=== PATIENT | female | born 1955 | race Caucasian/White ===

== ENCOUNTER 2017-04-13 10:58 | Outpatient (CLI) | payer BC ==
--- NOTE | 2017-04-13 16:42 | MRI ---
MRI CERVICAL SPINE NONCONTRAST; Date: 04/13/17 HISTORY: 62-year-old female with cervical radiculopathy and myelopathy. COMPARISON: 11/10/08. FINDINGS: There is no Chiari I malformation. The cervical spinal cord is normal in size and signal. The bone m arrow signal is normal. Vertebral body heights are maintained. Alignment is normal. The spinal canal is diffusely small in caliber on a congenital basis due to developmentally short pedicles. This is ex acerbated at several levels by central disc-osteophyte complexes encroaching upon the anterior aspect of the spinal canal. There are mild and moderate degenerative facet changes bilaterally at multiple levels, left worse than right. There is mild disc space narrowing at C4-5 and mild to moderate disc s pace narrowing at C5-6. The cervical spine cord is normal in size and signal. There is no syrinx. C1-2: No high grade central stenosis. C2-3: Mild to moderate central stenosis almost entirely on a developmental basis. No right-sided neural for aminal stenosis. Mild to moderate left neural foraminal stenosis. Moderate left degenerative facet hy pertrophy. Mild right degenerative facet changes. C3-4: Focal small central disc-osteophyte complex indents the ventral surface of the spinal cord. This is m inimally larger than it was in 2009. Overall, there is a moderate to severe degree of central spinal canal stenosis. There is ample CSF space to the right and to the left of the spinal cord, but not ant erior or posterior to the spinal cord. Small bilateral uncinate process osteophytes. Mild bilateral n eural foraminal stenosis, left greater than right. Essentially normal right facet joint. Moderate lef t facet degenerative hypertrophy. C4-5: Broad based, shallow disc-osteophyte complex mildly indents the ventral surface of the spinal cord, c ausing moderate to severe central spinal canal stenosis, greater than in 2009. Small bilateral uncina te process osteophytes. Bilateral mild to moderate neural foraminal stenosis. Mild to moderate right degenerative facet changes. Moderate left degenerative facet changes. C5-6: Central and bilateral paracentral disc-osteophyte complex abuts the ventral surface of the spinal cor d. There is no longer ample CSF space posterior to the spinal cord, and little anterior to the spinal cord. There is ample CSF space to the right and left of the spinal cord. Overall degree of central s regan canal stenosis is moderate to severe. Small to moderate bilateral uncinate process osteophytes. Moderate bilateral neural foraminal stenosis, left greater than right. The neural foraminal stenosis has progressed since the previous study. C6-7: Asymmetrical broad based disc-osteophyte complex abuts the ventral surface of the spinal cord. Mildly thickened ligamentum flavum abuts the dorsal surface of the spinal cord. Overall, moderate to severe central spinal canal stenosis. Bilateral moderate sized uncinate process osteophytes cause bilateral moderate to severe neural foraminal stenosis, progressed since the previous study. No high grade deg enerative facet changes. C7-T1: No central stenosis. Mild to moderate right degenerative facet changes. Moderate to severe left degen erative facet changes. No central or neural foraminal stenosis. IMPRESSION: 1. Cervical spondylosis exacerbating a developmentally small caliber spinal canal. 2. Multilevel moderate to severe central spinal canal stenosis. 3. Higher grade neural foraminal stenosis at lower levels. 4. Mild to moderate interval worsening since 2008. POS: ASUNCION
== END 2017-04-13 10:59 | disposition home or self-care (01) ==
LOC: MRI 10:58
PROVIDERS: ATTEND Anesthesiology
DX: M47.12 Other spondylosis with myelopathy, cervical region (principal); M47.22 Other spondylosis with radiculopathy, cervical region; M48.02 Spinal stenosis, cervical region; M99.51 Intervertebral disc stenosis of neural canal of cervical region
CPT/HCPCS: 72141

== ENCOUNTER 2017-06-03 08:18 | Day surgery (SDC) | payer BC ==
[2017-06-02 11:44] VITALS: BMI 22.8
--- NOTE | 2017-06-03 02:09 | HP ---
HISTORY OF PRESENT ILLNESS: Ms. Hinton is a 62-year-old woman who was referred to us by Dr. Shanks for concern of her cervical myelopathy. She has had a MRI scan of her cervical spine from [facility] that reveals congenitally narrow cervical spinal canal, but also multilevel disk osteophyte complexes, most significant of which is at C5-C6 and C6-C7, both at the base of spinal cord, but the re is no underlying T2 signal change that we can discern. Her major complaints are that of headaches as well as neck and interscapular pains with bilateral radiating symptoms in the bilateral arms that was consistent with C6 and C7 radiculopathies. She also feels numbness and hand intrinsic weakness, dropping items and having difficulty with fine motor function. This very well could result from the stenosis that she has in her spine. PAST MEDICAL HISTORY: Significant for sleep apnea, arthritis. CURRENT MEDICATIONS: Trazodone, Cymbalta, Neurontin, Celebrex, hydrocodone, lansoprazole, cyclobenza ashleigh. PAST SURGICAL HISTORY: Total knee replacement, hysterectomy, oophorectomy, rectocele repair and afor ementioned gastric sleeve. ALLERGIES: SULFA DRUGS. PHYSICAL EXAMINATION: GENERAL: The patient is alert and oriented x3. NEUROLOGIC: Gait is normal, no ataxia. EXTREMITIES: On motor exam, she has mild weakness in the bilateral hands. The rest of the exam was normal. There is of both dorsal and volar aspects of her hands. Reflexes are weak present reece aterally at the biceps. ASSESSMENT: Cervical radiculopathy. PLAN: Dr. Medina met with the patient, reviewed imaging and ultimately advocated for 2 level ACDF fro m C5-C7. He explained to the patient the risks, benefits, and alternatives of the procedure. The uzair zhong expressed understanding and would like to move forward with surgery as discussed. I do believe the patient is mentally competent and capable of making medical decisions for herself and we will mo ve forward with surgery as planned. César Torres PA-C, dictating for Rickey Medina M.D.
[2017-06-03] MEDS ORDERED: Thrombin 5000 UNITS/5 ML VIAL ONE (10:03)
[2017-06-03] MEDS ORDERED: CEFAZOLIN/Water 2 GM/20 ML SYRINGE ONE ×2 (10:16→15:14)
[2017-06-03] MEDS ORDERED: Fentanyl 100 MCG/2 ML VIAL ONE ×3 (10:20→12:36)
--- NOTE | 2017-06-03 12:02 | OP ---
DATE OF PROCEDURE: 06/03/2017 SURGEON: Dr. Rickey Medina PANEL LAMINATOR: Navin Torres PA-C. INDICATION: Pain. PREOPERATIVE DIAGNOSIS: Cervical stenosis with cervical radiculopathy. PROCEDURE: Anterior cervical discectomy and fusion C5-C7. ANESTHESIA: General. TECHNIQUE: The patient was brought into the operating room and placed under general anesthesia. She was placed on the table in supine position. A transverse incision was planned over the lateral aspe ct of the neck on the right. After prepping and draping and after an appropriate operative pause, th e incision was created. The underlying platysma muscle was identified and incised. A blunt tissue p klaus anterior to the sternocleidomastoid muscle was used to gain access to the prevertebral space. A fter identifying the appropriate levels with C-arm fluoroscopy, an annulotomy was performed in the C6 -7 disk space where all disk material as well as anterior and posterior osteophytes were removed. Af ter complete decompression, a 7 mm lordotic PEEK cage packed with allograft and autograft material wa s placed within the interbody space. We then redirected our attention to the level above at C5-6 whe re again an annulotomy was performed. All disk material as well as anterior and posterior osteophyte s were removed. After complete decompression, a 7 mm lordotic PEEK cage packed with allograft and au tograft material was placed in the interbody space. An anterior cervical plate was then fashioned to the front of the spine and secured with a total of 6 screws. Midline and lateral structures were in spected and found to be free from significant trauma. The wound was irrigated. Hemostasis was maint ained throughout. The wound was then closed in anatomic layers and a pressure dressing was applied. There were no known procedural complications.
[2017-06-03] MEDS ORDERED: HYDROmorphone 0.5 MG/0.5 ML SYRINGE ONE ×4 (12:50→13:32)
[2017-06-03] MEDS ORDERED: SUMAtriptan Succinate 50 MG TAB PO PRN (13:25)
[2017-06-03] MEDS ORDERED: Ondansetron HCl/PF 4 MG/2 ML Vial ONE (15:23)
[2017-06-03] MEDS ORDERED: Dexamethasone 20 MG/5 ML VIAL ONE (15:23)
[2017-06-03] MEDS ORDERED: Lidocaine 1% PF 5 ML VIAL ONE (15:23)
[2017-06-03] MEDS ORDERED: ePHEDrine/0.9% NaCl/PF SYRINGE 50 mg/10 ml ONE (15:23)
[2017-06-03] MEDS ORDERED: PROPOFOL 200 MG/20 ML VIAL ONE (15:23)
== END 2017-06-03 15:45 | disposition home or self-care (01) ==
LOC: SDC 08:18
PROVIDERS: ATTEND Anesthesiology
PROC: 0RG20A0 Fusion of 2 or more Cervical Vertebral Joints with Interbody Fusion Device, Anterior Approach, Anterior Column, Open Approach (ICD-10-PCS; principal; 2017-06-03)
DX: M48.02 Spinal stenosis, cervical region (principal); M54.12 Radiculopathy, cervical region; Z88.2 Allergy status to sulfonamides; Z88.8 Allergy status to other drugs, medicaments and biological substances; M19.90 Unspecified osteoarthritis, unspecified site; G47.30 Sleep apnea, unspecified; Z96.659 Presence of unspecified artificial knee joint; Z90.710 Acquired absence of both cervix and uterus; Z98.84 Bariatric surgery status; Z98.890 Other specified postprocedural states
CPT/HCPCS: 76001; 96374; C1713; C1776; J1100; J1170; J2001; J2405; J2704; J3010

== ENCOUNTER 2017-07-16 10:38 | Outpatient (CLI) | payer BC ==
--- NOTE | 2017-07-16 12:39 | RAD ---
3 VIEW CERVICAL SPINE: Date: 07/16/17 HISTORY: Cervical radiculopathy, prior cervical spine surgery. FINDINGS: Anterior diskectomy and fusion hardware is present at C5-6/C6-7. On the lateral examination, there is a linear metallic density projecting anterior to the T1 vertebra l body. This was not seen on the lateral examination and suggests something external to the patient. There is multilevel bilateral facet and uncovertebral osteophyte formation throughout the cervical sp ine from C4-5 through C7-T1. Open-mouth odontoid view demonstrates a normal appearing dens and C1-2 a rticulation. No prevertebral soft tissue swelling. No anterolisthesis or retrolisthesis. IMPRESSION: Postoperative and degenerative change within the cervical spine as above. POS: ASUNCION
== END 2017-07-16 10:39 | disposition home or self-care (01) ==
LOC: TBSIIMAG 10:38
PROVIDERS: ATTEND Neurological Surgery
DX: M47.22 Other spondylosis with radiculopathy, cervical region (principal); Z98.890 Other specified postprocedural states
CPT/HCPCS: 72040

== ENCOUNTER 2017-09-23 11:26 | Outpatient (CLI) | payer BC ==
--- NOTE | 2017-09-23 13:23 | RAD ---
CERVICAL SPINE 3 VIEWS: INDICATION: Neck pain. Followup surgery. COMPARISON: 07/16/17. FINDINGS: Postop changes are again noted with anterior plate and screws transfixing C5, C6, and C7 with interbo dy implants. These changes appear stable from 07/16/17. Posterior alignment is maintained. Disk spa daniela are otherwise preserved. There are mild degenerative changes which are again noted. IMPRESSION: Stable findings when compared to 07/16/17. POS: ASUNCION
== END 2017-09-23 11:27 | disposition home or self-care (01) ==
LOC: TBSIIMAG 11:26
PROVIDERS: ATTEND Neurological Surgery
DX: M54.12 Radiculopathy, cervical region (principal)
CPT/HCPCS: 72040

== ENCOUNTER 2017-10-02 07:48 | Outpatient (CLI) | payer BC ==
--- NOTE | 2017-10-02 09:33 | MRI ---
NONCONTRAST MRI CERVICAL SPINE: DATE: 10/12/17. HISTORY: Cervical radiculopathy. Getting headaches and bilateral hand pain. Numbness and swelling in the butcher ds. History of prior cervical spine surgery in May of 2016. COMPARISON: 04/13/17. FINDINGS: There have been interval postsurgical changes compared to the prior study with metallic susceptibilit y artifact related to anterior cervical fusion of the C5-6 and C6-7 levels. Cervicomedullary junction and limited visualized base of the brain demonstrate a normal MRI appearanc e. Aside from metallic susceptibility artifact at the C5 through C7 levels, there is otherwise normal si gnal intensity demonstrated throughout the bone marrow. C2-3 level: There is no disk bulge or disk herniation. Right neural foramen and central canal are p atent. There is mild left-sided neural foraminal narrowing related to facet hypertrophic changes on the left. C3-4 level: There is a disk-osteophyte complex with central disk protrusion also present on a prior study. Again noted is narrowing of the central spinal canal with slight flattening of the anterior a spect of the spinal cord, and normal signal intensity is present in the spinal cord at this level. U ncinate process hypertrophy is seen primarily on the right. There is mild bilateral neural foraminal narrowing overall similar to the prior exam. C4-5 level: A broad-based disk-osteophyte complex is again seen. This narrows the ventral subarachn oid space with slight flattening of the anterior aspect of the spinal cord similar to the prior study . There is generalized narrowing of the central spinal canal with mild to moderate narrowing of the central spinal canal. Mild bilateral neural foraminal narrowing is again seen. there are facet hype rtrophic changes present at this level. C5-6 level: Previously seen broad-based disk-osteophyte complex has improved related to recent posts urgical changes. Central spinal canal is patent. The right neural foramen is patent. There is mild left-sided neural foraminal narrowing related to mild posterior osteophyte formation on the left. C6-7 level: Postsurgical changes are present related to anterior cervical fusion as described above. The previously noted disk bulge at this level could not be seen. Mild residual posterior osteophyt e formation is seen and results in only slight effacement of the ventral aspect of the thecal sac. T here is no mass effect on the spinal cord. There is mild narrowing of each neural foramen. C7-T1 level: There is no disk bulge or disk herniation. Central spinal canal and neural foramina ar e patent. T1-2 level: There is no disk bulge or disk herniation. The central spinal canal and neural foramen are patent. Paravertebral soft tissues demonstrate a normal MRI appearance. IMPRESSION: 1. Interval postsurgical changes related to anterior cervical fusion of C5 through C7 levels. Previ ously noted disk bulges and central spinal canal narrowing at these levels has improved and previousl y noted mass effect on the spinal cord is no longer seen. 2. Stable prominent degenerative changes at C3-4 and C4-5 levels. 3. There is generalized narrowing of the central spinal canal which is on a congenital basis. POS: ASUNCION
== END 2017-10-02 07:49 | disposition home or self-care (01) ==
LOC: TBSIIMAG 07:48
PROVIDERS: ATTEND Neurological Surgery
DX: M50.10 Cervical disc disorder with radiculopathy, unspecified cervical region (principal); M47.26 Other spondylosis with radiculopathy, lumbar region; M48.02 Spinal stenosis, cervical region; Z98.890 Other specified postprocedural states; Z98.1 Arthrodesis status
CPT/HCPCS: 72141

== ENCOUNTER 2020-02-13 15:34 | Outpatient (CLI) | payer BC, OTHER ==
[2020-02-14 11:36] LABS: SARS-CoV-2 MS2 Positive; SARS-CoV-2 N Gene Negative; SARS-CoV-2 S Gene Negative; SARS-CoV-2 by NAA Not Detected (NotDetected); SARS-CoV-2 orf1ab Negative
== END 2020-02-13 15:35 | disposition home or self-care (01) ==
LOC: LABBT 15:34
PROVIDERS: ATTEND Physician Assistant Medical
DX: Z20.828 Contact with and (suspected) exposure to other viral communicable diseases (principal)
CPT/HCPCS: 87635; U0003

== ENCOUNTER 2020-03-07 08:42 | Outpatient (CLI) | payer BC ==
[2020-03-08 18:39] LABS: SARS-CoV-2 MS2 Positive; SARS-CoV-2 N Gene Negative; SARS-CoV-2 S Gene Negative; SARS-CoV-2 by NAA Not Detected (NotDetected); SARS-CoV-2 orf1ab Negative
== END 2020-03-07 08:43 | disposition home or self-care (01) ==
LOC: LABBT 08:42
DX: Z01.812 Encounter for preprocedural laboratory examination (principal); Z20.828 Contact with and (suspected) exposure to other viral communicable diseases
CPT/HCPCS: 87635; U0003

== ENCOUNTER 2020-03-16 08:13 | Outpatient (CLI) | payer BC ==
[2020-03-16 17:55] LABS: SARS-CoV-2 MS2 Positive; SARS-CoV-2 N Gene Negative; SARS-CoV-2 S Gene Negative; SARS-CoV-2 by NAA Not Detected (NotDetected); SARS-CoV-2 orf1ab Negative
== END 2020-03-16 08:14 | disposition home or self-care (01) ==
LOC: LABBT 08:13
PROVIDERS: ATTEND Physician Assistant Medical
DX: Z01.812 Encounter for preprocedural laboratory examination (principal); Z20.828 Contact with and (suspected) exposure to other viral communicable diseases
CPT/HCPCS: 87635; U0003

== ENCOUNTER 2020-03-21 07:48 | Outpatient (CLI) | payer BC ==
--- NOTE | 2020-03-21 09:11 | RAD ---
EXAM: XR UGI Air Contrast PROVIDED CLINICAL HISTORY: Gastroesophageal reflux disease. Patient with history of prior gastric sleeve procedure. Patient has had persistent nausea and vomiting. Patient is post dilatation of the area of narrowing in August 2019. However patient continues to have nausea and vomiting. COMPARISON: None FINDINGS: Clean [employer] image demonstrates radiopaque suture material and postoperative clips in the epigastric region and left upper quadrant. Bowel gas pattern is nonspecific with small to moderate amount retained fecal material in the ascending colon. Phleboliths overlie the pelvis. There is calcification overlyi ng right iliac bone likely related to overlying injection granulomata. Degenerative changes are seen in the spine. Upper GI was performed with thin and thick liquid barium. There is decreased primary esophageal peris talsis. No tertiary contractions were appreciated during the exam. There is no evidence of a hiatal hernia. No gastroesophageal reflux was demonstrated during the exam. Postoperative changes related to gastric sleeve procedure are noted. The stomach does readily empty into the small bowel with the majority of contrast in the small bowel at the end of the examination. The duodenum and proximal smal l bowel demonstrate a normal appearance. IMPRESSION: 1. Prominent decrease in primary esophageal peristalsis. 2. Postoperative changes related to gastric sleeve procedure. Contrast in the stomach readily empties into the small bowel.
== END 2020-03-21 07:49 | disposition home or self-care (01) ==
LOC: RAD 07:48
PROVIDERS: ATTEND Physician Assistant Medical
DX: K21.9 Gastro-esophageal reflux disease without esophagitis (principal); R11.2 Nausea with vomiting, unspecified; R19.2 Visible peristalsis; Z98.890 Other specified postprocedural states
CPT/HCPCS: 74246

== ENCOUNTER 2020-08-28 15:17 | Outpatient (CLI) | payer BC ==
[2020-08-28 16:55] LABS: #Basophils 0.1 10x3/uL (0.0-0.2); #Eosinphils 0.1 10x3/uL (0.0-0.5); #Monocytes 0.5 10x3/uL (0.0-1.1); #Neutrophils 2.4 10x3/uL (1.5-8.4); %Eosinophils 2.3 % (0.0-6.0); %Lymphocytes 39.8 % (18.0-47.0); %Monocytes 9.3 % (0.0-10.0); %Neutrophils 47.2 % (40.0-75.0); Hemoglobin 12.7 g/dL (12.0-15.5); Mean Corpuscular HGB CONC 31.5 g/dL (32.0-36.0); Mean Corpuscular Hemoglobin 28.7 pg (27.0-33.0); Mean Corpuscular Volume 91.2 fl (81.6-98.3); Mean Platelet Volume 9.9 fl (7.4-10.4); Platelet Count 325 10x3/uL (150-450); RBC Distribution Width 13.4 % (11.5-14.5); Red Blood Cell (RBC) Count 4.42 10x6/uL (3.90-5.03); White Blood Cell (WBC) Count 5.2 10x3/uL (3.5-10.5)
[2020-08-28 17:02] LABS: ALT (SGPT) 13 U/L (8-55); AST (SGOT) 15 U/L (5-34); Albumin 4.3 g/dL (3.4-4.8); Alkaline Phosphatase 82 U/L (40-110); Anion Gap 14 mmol/L (10-20); BUN (Urea Nitrogen) 12 mg/dL (9.8-20.1); Bilirubin, Direct 0.2 mg/dL (0.1-0.3); Bilirubin, Total 0.5 mg/dL (0.2-1.2); Calc. Creatinine Clearance 0 mL/min (70-130); Calcium 8.5 mg/dL (7.8-10.44); Carbon Dioxide 29 mmol/L (23-31); Chloride 103 mmol/L (98-107); Glucose 76 mg/dL (80-115); Potassium 4.1 mmol/L (3.5-5.1); Protein, Total 6.6 g/dL (5.8-8.1); Sodium 142 mmol/L (136-145)
[2020-08-29 01:17] LABS: SARS-CoV-2 PCR by NAA Not Detected (NotDetected)
== END 2020-08-28 15:18 | disposition home or self-care (01) ==
LOC: LABBT 15:17
PROVIDERS: ATTEND Surgery
DX: Z01.812 Encounter for preprocedural laboratory examination (principal); K80.20 Calculus of gallbladder without cholecystitis without obstruction; Z20.822 Contact with and (suspected) exposure to COVID-19
CPT/HCPCS: 80048; 80076; 85025; 87635; U0003; U0005

== ENCOUNTER 2020-08-31 11:17 | Day surgery (SDC) | payer BC ==
[2020-08-30 13:09] VITALS: BMI 26.6
[2020-08-31] MEDS ORDERED: Bupivacaine 0.25% HCL 30 ML VIAL ONE (12:39)
[2020-08-31] MEDS ORDERED: Lidocaine 1% w/Epinephrine 1:100K 20 ML VIAL ONE (12:39)
[2020-08-31] MEDS ORDERED: Fentanyl 100 MCG/2 ML VIAL ONE ×4 (12:53→14:39)
[2020-08-31] MEDS ORDERED: PROPOFOL 200 MG/20 ML VIAL ONE (13:00)
[2020-08-31] MEDS ORDERED: ePHEDrine Sulfate 50 MG/10 ML VIAL ONE (13:00)
[2020-08-31] MEDS ORDERED: Dexamethasone 20 MG/5 ML VIAL ONE (13:00)
[2020-08-31] MEDS ORDERED: Rocuronium Bromide 10 MG/ML (10ML VIAL) ONE (13:00)
[2020-08-31] MEDS ORDERED: Lidocaine 1% PF 5 ML VIAL ONE (13:00)
[2020-08-31] MEDS ORDERED: Ondansetron PF 4 MG/2 ML Vial ONE (13:00)
[2020-08-31] MEDS ORDERED: Glycopyrrolate 0.2 MG/ML 5 ML SYRINGE ONE (13:00)
[2020-08-31] MEDS ORDERED: SUGAMMADEX SODIUM 200 MG/2 ML VIAL ONE (13:31)
[2020-08-31] MEDS ORDERED: Ketorolac Tromethamine 30 MG/ML VIAL ONE (15:21)
[2020-08-31] MEDS ORDERED: HYDROmorphone 0.5 MG/0.5 ML SYRINGE ONE (15:55)
[2020-08-31] MEDS ORDERED: HYDROcodone/Acetaminophen 5/325 mg Tablet ONE (18:17)
== END 2020-08-31 19:10 | disposition home or self-care (01) ==
LOC: SDC 11:17
PROVIDERS: ATTEND Surgery
PROC: 0FT44ZZ Resection of Gallbladder, Percutaneous Endoscopic Approach (ICD-10-PCS; principal; 2020-08-31)
DX: K80.10 Calculus of gallbladder with chronic cholecystitis without obstruction (principal); G47.30 Sleep apnea, unspecified; M19.90 Unspecified osteoarthritis, unspecified site; G25.81 Restless legs syndrome; E66.01 Morbid (severe) obesity due to excess calories; Z68.26 Body mass index [BMI] 26.0-26.9, adult; Z88.2 Allergy status to sulfonamides; Z88.8 Allergy status to other drugs, medicaments and biological substances
CPT/HCPCS: 88304; 93005; 93010; J0690; J1100; J1170; J1885; J2405; J2704; J3010; S0020